=== PATIENT | female | born 1925 | race Caucasian/White ===

== ENCOUNTER 2016-08-12 17:24 | Emergency (ER) | payer OTHER ==
--- NOTE | 2016-08-12 19:17 | PROVIDER DOCUMENTATION ---
HPI-Musculoskeletal Pain/Inj - GENERAL Chief Complaint: Fall Stated Complaint: fall Time Seen by Provider: 08/12/16 17:28 Source: patient, EMS - HX OF PRESENT ILLNESS-MUSKULOSKELTAL Nature of Presenting Problem: This pt presents today from her assisted living facility s/p fall. She reports that she is mostly wheelchair bound but tonight when she got out of bed she tried to walk to the bathroom and fell. She states that she hit her head but is unsure if she actually had any LOC. There is no actual injury noted. At present , pt is A&OX3. She is complaining of mild bilateral hip pain but no other complaints. Quality of Pain: reports: burning Severity in ED: mild Onset/Duration: 1 hour ago Timing: still present Modifying Factors: improves with: palpation Any recent injury?: Yes Locality of Occurance: Home Similar Symptoms Previously?: No Recently seen or treated by another doctor?: No Review of Systems - Adult - REVIEW OF SYSTEMS - ADULT Constitutional: reports: no symptoms reported. denies: chills, fever Eyes: reports: no symptoms reported. denies: discharge, dry eyes Ears, Nose, Mouth & Throat: reports: no symptoms reported. denies: ear discharge, ear pain Cardiovascular: reports: no symptoms reported. denies: chest pain, edema Respiratory: reports: no symptoms reported. denies: chronic cough, cough Gastrointestinal: reports: no symptoms reported. denies: abdominal pain, hematemesis Genitourinary: reports: no symptoms reported. denies: dysuria, discharge Musculoskeletal: reports: see HPI. denies: bone pain, back pain Integumentary: reports: no symptoms reported. denies: hives, hair loss Neurological: reports: see HPI. denies: ataxia, dizziness/vertigo Psychiatric: reports: no symptoms reported. denies: anxiety, anti-depressant use Endocrine: reports: no symptoms reported Hematologic/Lymphatic: reports: no symptoms reported Allergic/Immunologic: reports: no symptoms reported All Other Systems: Reviewed and Negative Past History - Adult - PAST MEDICAL HISTORY-ADULT Review of Records: reports: Old Records Reviewed, Nursing Assessment Review, Medications Reviewed, Social history reviewed & non-contributory. 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 negative: lethargic, slow to respond Eyes: PERRL/EOMI, pink conjunctivae Head, Ears, Nose, Mouth & Throat: normocephalic/atraumatic, normal ENT inspection, TMs normal, pharynx normal Neck: non-tender, full range of motion, supple, normal inspection. negative: muscle spasm, pain on movement Respiratory: chest non-tender, lungs clear, normal breath sounds, no pleuratic chest pain, no respiratory distress, no accessory muscle use. negative: respiratory distress, decreased breath sounds, accessory muscle use Cardiovascular: normal peripheral pulses, regular rate, rhythm, no edema, no gallop, no JVD, no murmur. negative: bradycardia, tachycardia Peripheral Pulses: radial (R): 2+, radial (L): 2+, dorsalis-pedis (R): 2+, dorsalis-pedis (L): 2+ Abdominal Exam: normal bowel sounds, non tender, soft, no organomegaly, no pulsatile mass Lymphatic: no adenopathy Back Exam: normal inspection, no CVA tenderness, no vertebral tenderness. negative: CVA tenderness, decreased range of motion, vertebral tenderness Extremity: normal range of motion, normal inspection, no pedal edema, no calf tenderness, normal capillary refill, pelvis stable, tenderness (very mild, bilateral hips) Integumentary: normal color, warm/dry Neurologic: patient financial representative II-XII nml as tested, no motor/sensory deficits. negative: facial droop, focal weakness, motor weakness, sensory deficit Psych/Mental Status: AL, normal mood/affect, normal thought content, normal thought process, oriented x 3 - Glascow Coma Score Best Eye Response ([place]): (4) open spontaneously Best Verbal Response ([place]): (5) oriented Best Motor Response ([place]): (6) obeys commands [place] Total: 15 Progress - PLAN OF CARE/RESULTS Progress/Plan/Lab Results: Orders Category Date Time Status HEAD/C-SPINE W/O CONTRAST [CT] Stat Exams 08/12/16 17:45 Taken PELVIS W/O CONTRAST [CT] Stat Exams 08/12/16 17:45 Taken Vital Signs Temp Pulse Resp BP Pulse Ox 08/12/16 18:59 61 15 214/79 95 08/12/16 17:33 98.3 F 59 L 18 211/65 98 Penicillins Allergy (Verified 04/25/16 18:56) Unknown Cyclobenzaprine [Flexeril] 5 mg PO QHS 07/12/15 Diltiazem HCl [Matzim LA] 180 mg PO DAILY 07/12/15 Levothyroxine [Synthroid] 1 tab PO DAILY 07/12/15 Montelukast [Singulair] 1 tab PO DAILY 07/12/15 Multivitamin [Multi-Vitamin Daily] 1 tab PO DAILY 07/12/15 Polyethylene Glycol 3350 17 g PO DAILY PRN 07/12/15 Ferrous Sulfate 325 mg PO DAILY #30 tablet 07/15/15 Azelastine 0.05% Oph Solution [Optivar 0.05% Oph Solution] 1 drop BOTH EYES BID 12/17/15 Chlorthalidone 25 mg PO DAILY 12/17/15 Melatonin 5 mg PO QHS 12/17/15 Mesalamine D.r. [Lialda] 1.2 gm PO DAILY 12/17/15 Pantoprazole Sodium [Protonix] 40 mg PO BID #60 tablet. 12/20/15 Loperamide [Imodium] 2 mg PO PRN PRN 04/08/16 Meclizine HCl [Antivert] 25 mg PO TID 04/08/16 Carvedilol [Coreg] 12.5 mg PO Q12HR #0 tablet 04/15/16 Hydralazine [Apresoline] 50 mg PO Q8HR #0 tablet 04/15/16 Sodium Bicarbonate 650 mg PO BID #0 tablet 04/15/16 Donepezil [Aricept] 10 mg PO DAILY #30 tablet 04/20/16 Aspirin 81 mg PO DAILY 08/12/16 Magnesium Hydroxide [Milk of Magnesia] 30 ml PO DAILY PRN PRN 08/12/16 Will d/c home. Pt and family in agreement. - CT/MRI 1 CT Study: Cervical Spine, Head CT Results: nad 2 CT Study: Pelvis CT Results: nad Departure - Departure Time of Disposition Order: 19:16 DIAGNOSIS: Fall Qualifiers: Encounter type: initial encounter Qualified Code(s): W19.XXXA - Unspecified fall, initial encounter Hip pain Qualifiers: Laterality: bilateral Qualified Code(s): M25.551 - Pain in right hip; M25.552 - Pain in left hip Disposition: HOME 01 Certified Medical Emergency: Emergent Condition: Good Additional Instructions: Follow up with your primary care provider. Return to the ER for any new or worsening symptoms. ED Follow Up Instructions: You have been treated by a care provider in the Emergency Department. These instructions are being provided to you so you can have an understanding of how to care for yourself upon discharge. Upon discharge from the Emergency Department, you are responsible for making arrangements for follow-up care by a physician of your choice. Take all prescribed medications as directed. Return to the Emergency Department immediately for any new or worsening symptoms. You may call the Physician Referral phone number at [phone] to obtain a list of Physicians who are taking new patients. Referrals: Stacy Mckeon MD [Primary Care Provider] - Attestation - Physician/ Mid-level Attestation Patient care was provided by Mid-level provider (MUSIC PASTOR/PA):: Yes Mid-level provider:: Ryland Contreras Mid-level documentation review:: The Mid-level provider documentation, treatment plan and medical decision making was reviewed by the physician who agrees with all treatment and medical decision making by the MLP.
[2016-08-12 19:49] VITALS: BP 205/93
--- NOTE | 2016-08-12 21:21 | Diag Imaging Result Document ---
PROCEDURE NAME: HEAD/C-SPINE W/O CONTRAST - 08/12/2016 CT HEAD AND C-SPINE WITHOUT CONTRAST: COMPARISON: CT head dated 04/25/2016. FINDINGS: HEAD: There is extensive low attenuation in the periventricular and subcortical white matter indicating advanced microangiopathy, stable. There has been interval development of encephalomalacia involving the left occipital lobe, posterior left temporal lobe, and posterior aspect of the left frontal lobe indicating interval infarcts. However, they still appear to be chronic. There is no definite acute infarct given the limitations of CT versus MRI. There are few stable lacunar infarcts associated with the deep mills matter bilaterally. There is no discrete intracranial mass, mass effect, or intracranial hemorrhage otherwise. Surrounding soft tissues are essentially unremarkable. Calvaria is intact. C-SPINE: There is multilevel degenerative arthropathy throughout the cervical spine with severe facet arthropathy on the left at and below C4-5. This is causing minimal anterolisthesis of C5 on C6 and mild retrolisthesis of C4 on C5. All of this is stable. There is no evidence of fracture, acute subluxation, or intrinsic osseous lesion otherwise. There is foraminal narrowing at multiple levels due to facet arthropathy that is stable. The central canal appears to be patent. There is extensive carotid calcification. Surrounding soft tissues are essentially unremarkable otherwise. IMPRESSION: 1. Interval development of left hemispheric encephalomalacia indicating an interval infarct. However, it appears chronic on this study. 2. No definite acute intracranial pathology. 3. Severe degenerative arthropathy involving the cervical spine that is stable. No evidence of fracture or other definite acute C-spine injury.
--- NOTE | 2016-08-12 21:24 | Diag Imaging Result Document ---
PROCEDURE NAME: PELVIS W/O CONTRAST - 08/12/2016 CT [facility] PELVIS WITHOUT CONTRAST: COMPARISON: CT abdomen and pelvis dated 12/17/2015. FINDINGS: There is extensive degenerative disk disease and there is facet arthropathy at the lower 2 lumbar levels. There is no evidence of fracture, dislocation, or intrinsic osseous lesion involving the pelvis, sacrum, or hips. There is extensive aortoiliac atherosclerotic disease. Surrounding soft tissues are essentially unremarkable, otherwise. IMPRESSION: Extensive degenerative change involving the lower lumbar spine but no evidence of fracture involving the pelvis or hips.
== END 2016-08-12 20:30 | disposition home or self-care (01) ==
LOC: EDBD → ED 17:24
DX: S09.90XA Unspecified injury of head, initial encounter (principal); M25.552 Pain in left hip; M25.551 Pain in right hip; I10 Essential (primary) hypertension; E78.5 Hyperlipidemia, unspecified; K21.9 Gastro-esophageal reflux disease without esophagitis; G35 Multiple sclerosis; G25.81 Restless legs syndrome; E07.9 Disorder of thyroid, unspecified; H54.41 Blindness, right eye, normal vision left eye; Z87.440 Personal history of urinary (tract) infections; Z95.5 Presence of coronary angioplasty implant and graft; W19.XXXA Unspecified fall, initial encounter; Z79.899 Other long term (current) drug therapy; Z79.82 Long term (current) use of aspirin
CPT/HCPCS: 70450; 72125; 72192